=== PATIENT | male | born 1965 | race Caucasian/White ===

== ENCOUNTER 2019-02-24 12:40 | Day surgery (SDC) | payer OTHER ==
[2019-02-24] MEDS ORDERED: MIDAZOLAM 1 MG/ML 2 ML INJ (16:38)
[2019-02-24] MEDS ORDERED: FENTAnyl 50 MCG/ML VIAL (16:38)
== END 2019-02-24 15:18 | disposition home or self-care (01) ==
LOC: GIL 12:40
DX: Z12.11 Encounter for screening for malignant neoplasm of colon (principal); K64.8 Other hemorrhoids
CPT/HCPCS: 45378